=== PATIENT | male | born 1965 | race Caucasian/White ===

== ENCOUNTER 2020-03-19 15:53 | Outpatient (CLI) | payer BC, SELFPAY ==
[2020-03-19 16:18] LABS: Basophils Percent Auto 0.6 % (0.2-1.2); Eosinophils Absolute Auto 0.1 K/mm3 (0-0.3); Eosinophils Percent Auto 1.3 % (0-4.4); Hematocrit 44.7 % (42.0-52.0); Hemoglobin 15.1 g/dL (14.0-18.0); Immature Granulocyte Absolute 0.02 K/mm3 (0.00-0.031); Immature Granulocyte Percent A 0.3 % (0-0.5); Lymphocytes Absolute Auto 1.28 K/mm3 (0.9-3.2); Mean Corpuscular HGB Conc 33.8 g/dl (32-36); Mean Corpuscular Hemoglobin 30.5 pg (26-34); Mean Corpuscular Volume 90.3 fl (80-100); Mean Platelet Volume 10.5 fl (7.4-10.4); Monocytes Absolute Auto 0.8 K/mm3 (0.1-0.6); Monocytes Percent Auto 11.1 % (2.6-8.5); Neutrophils Absolute Auto 4.6 K/mm3 (1.3-6.7); Neutrophils Percent Auto 67.7 % (45.5-73.1); Platelet Count Result 246 k/mm3 (150-375); Red Blood Count 4.95 M/mm3 (4.6-6.20); Red Cell Distribution Width 12.2 % (11.5-14.5); White Blood Count 6.7 K/mm3 (4.5-10.0)
[2020-03-19 16:30] LABS: Alanine Aminotransferase 35 U/L (4-50); Albumin Level 4.6 g/dL (3.5-5.1); Alkaline Phosphatase 84 U/L (38-126); Anion Gap 13.9 mmol/L (7-16); Aspartate Amino Transferase 24 U/L (17-59); Bilirubin,Total 0.6 mg/dL (0.2-1.3); Blood Urea Nitrogen 17 mg/dL (9-20); Calcium 9.3 mg/dL (8.4-10.2); Carbon Dioxide 30 mmol/L (22-30); Chloride 98 mmol/L (98-107); Cholesterol 176 mg/dL (0-200); Estimated Glomerular Filt Rate > 60; Glucose 132 mg/dL (75-110); HDL Direct 42 mg/dL; Potassium 3.9 mmol/L (3.4-5.0); Sodium 138 mmol/L (137-145); Triglycerides 104 mg/dL (<150)
[2020-03-19 16:41] LABS: LDL Cholesterol Direct 112 mg/dL
[2020-03-19 17:01] LABS: Prostate Specific Antigen 1.4 ng/mL (< OR = 4.0)
== END 2020-03-19 15:54 | disposition home or self-care (01) ==
LOC: ANHLAB 15:56
PROVIDERS: PCP Internal Medicine; Visit Provider Clinical Nurse Specialist
DX: Z12.5 Encounter for screening for malignant neoplasm of prostate (principal); I10 Essential (primary) hypertension; E78.5 Hyperlipidemia, unspecified; E11.9 Type 2 diabetes mellitus without complications
CPT/HCPCS: 36415; 80053; 80061; 83036; 84153; 85025; G0103

== ENCOUNTER 2020-12-25 15:34 | Outpatient (CLI) | payer BC, SELFPAY ==
[2020-12-25 16:11] LABS: Anion Gap 6 mmol/L (8-16); Blood Urea Nitrogen 23 mg/dL (9-20); Calcium 9.4 mg/dL (8.4-10.2); Carbon Dioxide 33 mmol/L (22-30); Chloride 97 mmol/L (98-107); Estimated Glomerular Filt Rate > 60; Glucose 133 mg/dL (75-110); Potassium 3.9 mmol/L (3.4-5.0); Sodium 136 mmol/L (137-145)
[2020-12-25 17:01] LABS: Hemoglobin A1C 7.9 % (<5.7)
[2020-12-25 17:07] LABS: Creatinine Urine 136.7 mg/dL
[2020-12-25 17:12] LABS: MALB Creatinine Ratio 113.8 mg/g (0-30); Microalbumin Urine Random 155.6 mg/L (0-16.7)
== END 2020-12-25 15:35 | disposition home or self-care (01) ==
PROVIDERS: PCP Internal Medicine; Visit Provider Nurse Practitioner
DX: E11.9 Type 2 diabetes mellitus without complications (principal)
CPT/HCPCS: 36415; 80048; 82043; 83036

== ENCOUNTER 2022-03-17 16:02 | Outpatient (CLI) | payer BC, SELFPAY ==
[2022-03-17 17:37] LABS: Basophils Percent Auto 0.5 % (0.2-1.2); Eosinophils Absolute Auto 0.1 K/mm3 (0-0.3); Eosinophils Percent Auto 1.4 % (0-4.4); Hematocrit 41.7 % (42.0-52.0); Immature Granulocyte Absolute 0.04 K/mm3 (0.00-0.031); Immature Granulocyte Percent A 0.6 % (0-0.5); Lymphocytes Absolute Auto 1.58 K/mm3 (0.9-3.2); Lymphocytes Percent Auto 24.3 % (18.3-44.2); Mean Corpuscular HGB Conc 33.6 g/dl (32-36); Mean Corpuscular Hemoglobin 30.8 pg (26-34); Mean Corpuscular Volume 91.6 fl (80-100); Monocytes Absolute Auto 0.7 K/mm3 (0.1-0.6); Monocytes Percent Auto 10.8 % (2.6-8.5); Neutrophils Absolute Auto 4.1 K/mm3 (1.3-6.7); Neutrophils Percent Auto 62.4 % (45.5-73.1); Platelet Count Result 280 k/mm3 (150-375); Red Blood Count 4.55 M/mm3 (4.6-6.20); White Blood Count 6.5 K/mm3 (4.5-10.0)
[2022-03-17 17:49] LABS: Alanine Aminotransferase 18 U/L (6-50); Albumin Level 4.4 g/dL (3.5-5.1); Alkaline Phosphatase 102 U/L (38-126); Anion Gap 11 mmol/L (8-16); Aspartate Amino Transferase 17 U/L (17-59); Bilirubin,Total 0.6 mg/dL (0.2-1.3); Blood Urea Nitrogen 13 mg/dL (9-20); Calcium 9.2 mg/dL (8.4-10.2); Carbon Dioxide 30 mmol/L (22-30); Chloride 96 mmol/L (98-107); Cholesterol 151 mg/dL (0-200); Estimated Glomerular Filt Rate > 60; Glucose 200 mg/dL (65-110); HDL Direct 33 mg/dL; Potassium 3.8 mmol/L (3.4-5.0); Sodium 137 mmol/L (137-145); Triglycerides 77 mg/dL (<150)
[2022-03-17 17:59] LABS: LDL Cholesterol Direct 96 mg/dL
[2022-03-17 18:18] LABS: Prostate Specific Antigen 1.5 ng/mL (< OR = 4.0)
[2022-03-18 00:13] LABS: Hemoglobin A1C 10.5 % (<5.7)
== END 2022-03-17 16:03 | disposition home or self-care (01) ==
PROVIDERS: PCP Internal Medicine; Visit Provider Clinical Nurse Specialist
DX: Z12.5 Encounter for screening for malignant neoplasm of prostate (principal); F41.9 Anxiety disorder, unspecified; E78.2 Mixed hyperlipidemia; E11.9 Type 2 diabetes mellitus without complications
CPT/HCPCS: 36415; 80053; 80061; 83036; 84153; 84443; 85025; G0103

== ENCOUNTER 2022-06-01 06:24 | Outpatient (RCR) | payer BC, SELFPAY | END 2022-08-17 08:29 | disposition home or self-care (01) | LOC: ANHDMC 06:24 | PROVIDERS: PCP Internal Medicine; Visit Provider Clinical Nurse Specialist | DX: E11.9 Type 2 diabetes mellitus without complications (principal) | CPT/HCPCS: 99199 ==

== ENCOUNTER 2022-06-19 16:17 | Emergency (ER) | payer BC, SELFPAY ==
--- NOTE | ~2022-06-19 | XR_ITS ---
EXAM: XR tibia fibula RT 2V DATE: 06/19/2022 16:52 HISTORY: LATERACTERION TO LAT SIDE OF MID TIBFIB. HIT WITH TIRE IRON . COMPARISON: None available. FINDINGS: Normal mineralization. No fracture or dislocation. No lytic or blastic lesion. Joint space s are maintained. No erosion. Smooth periosteal elevation along the lateral cortex of the mid tibia, apparently deep to the soft tissue wound. IMPRESSION: No definite acute osseous finding. Smooth periosteal elevation deep to the soft tissue wo und, presumably an incidental and unrelated finding. Reviewed, dictated and finalized at location K. IMPRESSION: No definite acute osseous finding. Smooth periosteal elevation deep to the soft tissue wound, presumably an incidental and unrelated finding.
[2022-06-19 16:29] VITALS: BP 179/84; PULSE 90; RESP 19; TEMP 36.9; O2SAT 97
--- NOTE | 2022-06-19 17:14 | ED.WOUNDLAC ---
HPI - Wound/Laceration General Chief Complaint: Wound/Laceration <BIANKA Green Last Filed: 06/19/22 18:15> Stated Complaint: R FRANCISCO LACERATION <BIANKA Green Last Filed: 06/19/22 18:15> Time Seen by Provider: 06/19/22 16:58 <BIANKA Green Last Filed: 06/19/22 18:15> Source: patient <BIANKA Green Last Filed: 06/19/22 18:15> Mode of arrival: ambulatory <BIANKA Green Last Filed: 06/19/22 18:15> Limitations: no limitations <BIANKA Green Last Filed: 06/19/22 18:15> History of Present Illness HPI narrative: Patient is a 56 y/o male who presents to the ED with c/o laceration to his R francisco. Patient reports he was changing a car tire today when the tire excellently slipped and hit him in his right lower lateral francisco. He sustained a large laceration. No other injuries. He has been able to ambulate since the fall. No numbness, tingling. Tetanus status up-to-date. <BIANKA Green Last Filed: 06/19/22 18:15> Related Data Home Medications: Home Medications Medication Instructions Recorded Confirmed lancets 33 gauge (OneAidan Yeager #100 ea 03/30/22 03/30/22 Plus Lancet) <BIANKA Green Last Filed: 06/19/22 18:15> Allergies/Adverse Reactions: Allergies Allergy/AdvReac Type Severity Reaction Status Date / Time No Known Allergies Allergy Verified 03/30/22 13:28 <BIANKA Green Last Filed: 06/19/22 18:15> Review of Systems Review of Systems: CONSTITUTIONAL: Denies fever, chills, or sweats. SKIN: Reports laceration to R lateral lower francisco. NEUROLOGIC: Denies tingling, numbness, or weakness. <Rand Schwartz PA-C - Last Filed: 06/19/22 18:15> All systems reviewed & are unremarkable except as noted in HPI and below <Rand Schwartz PA-C - Last Filed: 06/19/22 18:15> [facility] Past Medical History Medical History: Medical History Alcoholism sober since 2007 Allergies Anxiety GI bleed HTN (hypertension) Hyperglycemia Hyperlipidemia Median nerve compression Type 2 diabetes mellitus <Rand Schwartz PA-C - Last Filed: 06/19/22 18:15> Surgical History Surgical History: Surgical History History of carpal tunnel surgery of left wrist History of carpal tunnel surgery of right wrist History of hand surgery right finger <Rand Schwartz PA-C - Last Filed: 06/19/22 18:15> Family History Family History: Family History Mother Carcinoma of colon Father No problems noted. <Rand Schwartz PA-C - Last Filed: 06/19/22 18:15> Social History Social History: Social History Smoking status: Never smoker Smokeless tobacco user: chewing tobacco Alcohol intake: former <Rand Schwartz PA-C - Last Filed: 06/19/22 18:15> Exam Narrative: GENERAL: Well appearing, morbidly obese, non-toxic, in no acute distress. HEAD: Normocephalic, atraumatic. NECK: Supple. No adenopathy, no masses. RESPIRATORY: Airway patent, respirations nonlabored. CARDIOVASCULAR: Regular rate and rhythm without murmurs, rubs, or gallops. Pedal pulses 2+ and equal bilaterally. MUSCULOSKELETAL: Moves all extremities. Strength/ROM intact without gross deformities. Sensation intact. Approx 6.5 cm laceration, slightly gaping, to right lateral anterior lower leg. Subcutaneous fat exposed, no obvious muscle or tendon involvement. SKIN: Warm, dry, normal color. No rashes. NEURO: A&O X3. Speech clear. Cranial nerves II-XII grossly intact. Steady gait. No ataxic movements. PSYCHIATRIC: Appropriate mood and affect. Normal interaction. <Rand Blake
== END 2022-06-19 18:21 | disposition home or self-care (01) ==
PROVIDERS: Emergency Provider Emergency Medicine; PCP Internal Medicine
DX: S81.811A Laceration without foreign body, right lower leg, initial encounter (principal); I10 Essential (primary) hypertension; E78.5 Hyperlipidemia, unspecified; E11.9 Type 2 diabetes mellitus without complications; W22.8XXA Striking against or struck by other objects, initial encounter
CPT/HCPCS: 12002; 73590; 99283

== ENCOUNTER 2022-09-16 10:07 | Emergency (ER) | payer BC, SELFPAY ==
--- NOTE | 2022-09-16 10:14 | ED.BACK ---
HPI - Back Pain/Injury General Chief Complaint: Back Pain/Injury Stated Complaint: BACK PAIN Time Seen by Provider: 09/16/22 10:08 Source: patient and RN notes reviewed History of Present Illness HPI Narrative: Patient is a 56-year-old male who presents to urgent care with complaints of low back pain. Patient states he was running around the [place] on Tuesday tracing after several dogs and tweaked his back. Patient states that he has had low back pain in the past and believes he has ?bulging disc?. Patient has been using icy Hot taking ibuprofen. Denies any radiation of the pain. No other acute complaints. No acute distress noted. Patient aware of the plan of care. Some parts of this dictation were generated by voice recognition software and may contain typographical and/or grammatical inaccuracies. Related Data Home Medications Medication Instructions Recorded Confirmed lancets 33 gauge ([email or web address] Delica #100 ea 03/30/22 03/30/22 Plus Lancet) Allergies Allergy/AdvReac Type Severity Reaction Status Date / Time No Known Allergies Allergy Verified 03/30/22 13:28 Review of Systems Review of Systems: CONSTITUTIONAL: Denies fever, chills, or sweats. EYES: Denies visual changes, redness, or discharge. ENT: Denies rhinorrhea, congestion, sore throat, or otalgia. CARDIOVASCULAR: Denies chest pain, palpitations, or edema. RESPIRATORY: Denies cough or dyspnea. GASTROINTESTINAL: Denies abdominal pain, nausea, vomiting, or diarrhea. GENITOURINARY: Denies dysuria or hematuria. SKIN: Denies rash or itching. MUSCULOSKELETAL: Reports of low back pain NEUROLOGIC: Denies headache, numbness, or weakness. All other systems reviewed are negative, except as documented in HPI. [facility] Past Medical History Medical History Alcoholism sober since 2007 Allergies Anxiety GI bleed HTN (hypertension) Hyperglycemia Hyperlipidemia Median nerve compression Type 2 diabetes mellitus Surgical History Surgical History History of carpal tunnel surgery of left wrist History of carpal tunnel surgery of right wrist History of hand surgery right finger Family History Family History Mother Carcinoma of colon Father No problems noted. Social History Social History Smoking status: Never smoker Smokeless tobacco user: chewing tobacco Alcohol intake: former Comments At the time of my signature, I reviewed and agree with the nursing past medical, surgical, social, and family history. There is no relevant family history pertinent to the patient complaint. Exam Narrative: GENERAL: This is a well-nourished, well-developed patient, in no apparent distress. HEAD: normocephalic, atraumatic. EYES: PERRL. Sclera clear/white. Vision is grossly intact. EARS: External ears normal NOSE: External nose normal with no obvious nasal discharge, nares without redness, no rhinorrhea. THROAT: Mucous membranes moist NECK: Neck supple SKIN: warm, intact with no suspicious lesions or rash, good texture and turgor. NEURO: awake, alert, and oriented to person, place and time. There were no obvious focal neurologic abnormalities. EXTREMITIES: No clubbing, cyanosis, or edema. BACK: Diffuse lumbar tenderness exacerbated with movement, twisting bending at the waist. Pinpoint moderate tenderness to the left number aspect. Positive bilateral SLE. Course Course Level of Care: Express Care Visit Vital Signs Vital signs: Vital Signs Temperature 96.7 F L 09/16/22 10:19 Pulse Rate 95 09/16/22 10:19 Respiratory Rate 16 09/16/22 10:19 Blood Pressure 148/106 H 09/16/22 10:19 Pulse Oximetry 99 09/16/22 10:19 Temperature 96.7 F L 09/16/22 10:19 Pulse Rate 95 09/16/22 10
[2022-09-16 10:19] VITALS: BP 148/106; PULSE 95; RESP 16; TEMP 35.9; O2SAT 99
== END 2022-09-16 10:48 | disposition home or self-care (01) ==
PROVIDERS: Emergency Provider Nurse Practitioner Family; PCP Internal Medicine
DX: S39.012A Strain of muscle, fascia and tendon of lower back, initial encounter (principal); X50.9XXA Other and unspecified overexertion or strenuous movements or postures, initial encounter; Y93.02 Activity, running; I10 Essential (primary) hypertension; E78.5 Hyperlipidemia, unspecified; E11.9 Type 2 diabetes mellitus without complications
CPT/HCPCS: 99213; G0463

== ENCOUNTER 2023-01-20 15:29 | Outpatient (CLI) | payer BC, SELFPAY ==
[2023-01-20 18:44] LABS: Anion Gap 9 mmol/L (8-16); Blood Urea Nitrogen 20 mg/dL (9-20); Calcium 9.1 mg/dL (8.4-10.2); Carbon Dioxide 30 mmol/L (22-30); Chloride 97 mmol/L (98-107); Estimated Glomerular Filt Rate > 60; Glucose 226 mg/dL (65-110); Potassium 4.1 mmol/L (3.4-5.0); Sodium 136 mmol/L (137-145)
[2023-01-20 19:22] LABS: Hemoglobin A1C 9.2 % (<5.7)
[2023-01-21 11:35] LABS: Creatinine Urine 180.7 mg/dL
[2023-01-21 11:39] LABS: MALB Creatinine Ratio 82.5 mg/g (0-30)
== END 2023-01-20 15:30 | disposition home or self-care (01) ==
LOC: ANHGOSHLAB 15:29
PROVIDERS: PCP Internal Medicine; Visit Provider Clinical Nurse Specialist
DX: E11.9 Type 2 diabetes mellitus without complications (principal)
CPT/HCPCS: 36415; 80048; 82043; 82607; 83036

== ENCOUNTER 2024-02-29 15:44 | Outpatient (CLI) | payer BC, SELFPAY ==
[2024-02-29 20:08] LABS: Basophils Percent Auto 0.5 % (0.2-1.2); Eosinophils Absolute Auto 0.1 K/mm3 (0-0.3); Eosinophils Percent Auto 1.6 % (0-4.4); Hematocrit 45.3 % (42.0-52.0); Immature Granulocyte Absolute 0.06 K/mm3 (0.00-0.031); Immature Granulocyte Percent A 0.8 % (0-0.5); Lymphocytes Absolute Auto 1.36 K/mm3 (0.9-3.2); Lymphocytes Percent Auto 17.8 % (18.3-44.2); Mean Corpuscular HGB Conc 33.1 g/dl (32-36); Mean Corpuscular Hemoglobin 30.7 pg (26-34); Mean Corpuscular Volume 92.8 fl (80-100); Mean Platelet Volume 11.4 fl (7.4-10.4); Monocytes Absolute Auto 0.8 K/mm3 (0.1-0.6); Monocytes Percent Auto 10.4 % (2.6-8.5); Neutrophils Absolute Auto 5.3 K/mm3 (1.3-6.7); Neutrophils Percent Auto 68.9 % (45.5-73.1); Platelet Count Result 280 k/mm3 (150-375); Red Blood Count 4.88 M/mm3 (4.6-6.20); Red Cell Distribution Width 11.6 % (11.5-14.5); White Blood Count 7.6 K/mm3 (4.5-10.0)
[2024-02-29 20:24] LABS: Alanine Aminotransferase 32 U/L (6-50); Albumin Level 4.7 g/dL (3.5-5.1); Alkaline Phosphatase 83 U/L (38-126); Anion Gap 12 mmol/L (4-12); Aspartate Amino Transferase 27 U/L (17-59); Bilirubin,Total 0.5 mg/dL (0.2-1.3); Blood Urea Nitrogen 16 mg/dL (9-20); Calcium 9.3 mg/dL (8.4-10.2); Carbon Dioxide 30 mmol/L (22-30); Chloride 95 mmol/L (98-107); Cholesterol 222 mg/dL (0-200); Estimated Glomerular Filt Rate > 60; Glucose 171 mg/dL (65-110); HDL Direct 45 mg/dL; Potassium 4.2 mmol/L (3.4-5.0); Sodium 137 mmol/L (137-145); Triglycerides 199 mg/dL (<150)
[2024-02-29 20:25] LABS: Creatinine Urine 87.2 mg/dL
[2024-02-29 20:36] LABS: LDL Cholesterol Direct 148 mg/dL
[2024-02-29 20:44] LABS: MALB Creatinine Ratio 405.4 mg/g (0-30); Microalbumin Urine Random 353.5 mg/L (0-16.7)
[2024-02-29 20:53] LABS: Prostate Specific Antigen 2.1 ng/mL (< OR = 4.0)
[2024-02-29 21:24] LABS: Hemoglobin A1C 8.8 % (<5.7)
== END 2024-02-29 15:45 | disposition home or self-care (01) ==
LOC: ANHGOSHLAB 15:46
PROVIDERS: PCP Clinical Nurse Specialist; Visit Provider Clinical Nurse Specialist
DX: E55.9 Vitamin D deficiency, unspecified (principal); E11.9 Type 2 diabetes mellitus without complications; E78.2 Mixed hyperlipidemia; I10 Essential (primary) hypertension; Z12.5 Encounter for screening for malignant neoplasm of prostate
CPT/HCPCS: 36415; 80053; 80061; 82043; 82607; 83036; 84153; 85025; G0103

== ENCOUNTER 2024-07-24 13:24 | Emergency (ER) | payer BC, SELFPAY ==
--- NOTE | ~2024-07-24 | CT_ITS ---
EXAMINATION: CT brain wo con DATE: 07/24/2024 14:40 INDICATION: Headache. Hypertension. TECHNIQUE: Computed tomography (CT) of the head was performed without intravenous contrast. Sagittal and coronal reconstructions were performed. The mA was adjusted according to patient size. Iterative reconstruction technique was employed. The dose-length product was 605.33 mGy-cm. COMPARISON: head CT dated 07/30/2010 FINDINGS: No acute intracranial hemorrhage, acute infarction or abnormal extra axial fluid collection. Small ol d infarct in the left cerebellar hemisphere. Ventricles are normal and symmetric. No mass/mass effect . Small right mastoid effusion. The orbits are normal. Partially visualized cephalad margin of a like ly mucous retention cyst at the inferior right maxillary sinus. IMPRESSION: 1. Small old left cerebellar infarct. No acute intracranial process. Reviewed, dictated and finalized at location A. [employer]
[2024-07-24 13:29] VITALS: BP 192/103; PULSE 90; RESP 20; TEMP 36.3; O2SAT 98
--- NOTE | 2024-07-24 14:27 | ED.EAR ---
HPI - Ear Problem General Chief complaint: Ear <Rashida Krishnamurthy PA-C - Last Filed: 07/25/24 12:14> Stated complaint: R ear problems <Rashida Krishnamurthy PA-C - Last Filed: 07/25/24 12:14> Time Seen by Provider: 07/24/24 14:27 <Rashida Krishnamurthy PA-C - Last Filed: 07/25/24 12:14> Focused HPI: This is a 58 year old male that presents to the ER for ear problems. Reports he has a ruptured ear drum on the right. Reports he has had some discomfort and fullness. Reports today his jaw stared hurting and he has had headaches. Reports dizziness today as well. Described as lightheadedness. Denies chest pain or shortness of breath. His blood pressure is noted to be elevated in triage. Reports he did take his blood pressure medication last night, but has not been taking it as prescribed recently. GENERAL: Well-appearing, well-nourished, and in no acute distress. HEAD: Normocephalic, atraumatic. CHEST: Clear to auscultation. ?No respiratory distress. HEART: Regular rate and rhythm.? NEURO: ?Alert and oriented x3. Patient screened in triage and initial orders placed.? ?Additional care and disposition to be based upon?diagnostic testing and treatment. <Rashida Krishnamurthy PA-C - Last Filed: 07/25/24 12:14> History of Present Illness HPI Narrative: see above <Xuan Mcmullen MD - Last Filed: 07/24/24 18:05> Related Data Home medications: Home Medications ?Medication ?Instructions ?Recorded ?Confirmed ?Last Taken ?Type lancets 33 gauge (OneTouch Delica #100 ea 03/30/22 03/01/24 Unknown History Plus Lancet) <Rashida Krishnamurthy PA-C - Last Filed: 07/25/24 12:14> Allergies/adverse reactions: Allergies Allergy/AdvReac Type Severity Reaction Status Date / Time No Known Allergies Allergy Verified 07/24/24 13:33 <BIANKA Nuñez Last Filed: 07/25/24 12:14> Review of Systems Review of Systems: All systems reviewed & are unremarkable except as noted in HPI and below <Rashida Krishnamurthy PA-C - Last Filed: 07/25/24 12:14> [facility] Past Medical History Medical History: Medical History Alcoholism sober since 2007 Allergies Anxiety GI bleed HTN (hypertension) Hyperglycemia Hyperlipidemia Median nerve compression Type 2 diabetes mellitus <Rashida Krishnamurthy PA-C - Last Filed: 07/25/24 12:14> Surgical History Surgical History: Surgical History History of carpal tunnel surgery of left wrist History of carpal tunnel surgery of right wrist History of hand surgery right finger <Rashida Krishnamurthy PA-C - Last Filed: 07/25/24 12:14> Family History Family History: Family History Mother Carcinoma of colon Father No problems noted. <Rashida Krishnamurthy PA-C - Last Filed: 07/25/24 12:14> Social History Social History: Social History (Updated 01/20/23 @ 14:57 by Olga Ramirez MA) Smoking status: Never smoker Smokeless tobacco user: chewing tobacco Alcohol intake: former Lack of Transportation: No Lack of Food: Never True Current Housing: I Have Housing Concerned About Future Housing: No Difficulty Paying Gas/Electric Bills: No Difficulty Paying for Meds: No Currently Unemployed: No Education: Bachelor's Degree Difficulty w/ Childcare or Family Care: No <Rashida Krishnamurthy PA-C - Last Filed: 07/25/24 12:14> Exam Narrative: EXAMINATION OF ORGAN SYSTEMS/BODY AREAS: Constitutional: Vital signs per nursing GENERAL:[No acute distress, non-toxic appearing.] HEAD: Normal with no signs of head trauma. EYES: EOMI, conjunctiva normal ENT: R TM ruptured; no redness to canal or drainage or tenderness LUNGS: Nonlabored breathing. HEART: [Regular rate and rhythm] ABD: [Soft], [nontender to palpation] EXT: Normal range of motion SKIN: [No rashes or lesions.] NEURO: [Alert and oriented x 3. No gross focal sensory or strength deficits.] ambulating with normal, steady gait. Clear speech. PSYCH: Normal affect <Xuan Mcmullen MD - Last Filed: 07/24/24 18:05> Course Vital Signs Vital signs: Vital Signs Temperature 97.3 F L 07/24/24 13:29 Pulse Rate 90 07/24/24 13:29 Respiratory Rate 20 07/24/24 13:29 Blood Pressure 192/103 H 07/24/24 13:29 Pulse Oximetry 98 07/24/24 13:29 Oxygen Delivery Room Air 07/24/24 13:29 Temperature 97.3 F L 07/24/24 13:29 Pulse Rate 90 07/24/24 13:29 Respiratory Rate 20 07/24/24 13:29 Blood Pressure 192/103 H 07/24/24 13:29 Pulse Oximetry 98 07/24/24 13:29 Oxygen Delivery Room Air 07/24/24 13:29 <Rashida Krishnamurthy PA-C - Last Filed: 07/25/24 12:14> Vital Signs Temperature 97.3 F L 07/24/24 13:29 Pulse Rate 90 07/24/24 13:29 Respiratory Rate 20 07/24/24 13:29 Blood Pressure 192/103 H 07/24/24 13:29 Pulse Oximetry 98 07/24/24 13:29 Oxygen Delivery Room Air 07/24/24 13:29 Temperature 97.3 F L 07/24/24 13:29 Pulse Rate 90 07/24/24 13:29 Respiratory Rate 20 07/24/24 13:29 Blood Pressure 192/103 H 07/24/24 13:29 Pulse Oximetry 98 07/24/24 13:29 Oxygen Delivery Room Air 07/24/24 13:29 <Xuan Mcmullen MD - Last Filed: 07/24/24 18:05> Medical Decision Making MDM Narrative Medical decision making narrative: patient presenting with some right ear fullness, and also had some lightheadedness recently, no vertigo, fevers, or ear drainage. Patient also with asymptomatic hypertension. No signs or symptoms of end organ dysfunction; no chest pain or shortness of breath, neurological deficits, severe headaches, visual disturbance, oliguria, or symptoms of dissection/AAA). Long-term risks of hypertension, especially uncontrolled, were discussed including increased risks of kidney disease, vascular disease, stroke and heart disease. We discussed lifestyle modifications including diet and exercise. Labs are within acceptable limits, CT head does show possible old cerebellar infarct, I have discussed all of this with the patient, including the need for him to make sure that he is keeping his diabetes and hypertension under control, quitting alcohol and tobacco use to help limit his risk factors. Importance of making sure he actually takes his blood pressure medications as scheduled discussed; He admits that he does not take his medications consistently. I have low concern for CVA today without any neurologic deficits, vertigo. ED my independent interpretation shows normal sinus rhythm rate 84, NE 166, QRS 95, QTC 413, no ST elevation or depression concerning for acute ischemia or arrhythmia. Patient expressed understanding of the instructions and strongly advised to follow-up with PMD for further management. <Xuan Mcmullen MD - Last Filed: 07/24/24 18:05> Vital Signs Vital Signs: Vital Signs Temperature 97.3 F L 07/24/24 13:29 Pulse Rate 90 07/24/24 13:29 Respiratory Rate 20 07/24/24 13:29 Blood Pressure 192/103 H 07/24/24 13:29 Pulse Oximetry 98 07/24/24 13:29 Oxygen Delivery Room Air 07/24/24 13:29 Temperature 97.3 F L 07/24/24 13:29 Pulse Rate 90 07/24/24 13:29 Respiratory Rate 20 07/24/24 13:29 Blood Pressure 192/103 H 07/24/24 13:29 Pulse Oximetry 98 07/24/24 13:29 Oxygen Delivery Room Air 07/24/24 13:29 <Rashdia Krishnamurthy PA-C - Last Filed: 07/25/24 12:14> Vital Signs Temperature 97.3 F L 07/24/24 13:29 Pulse Rate 90 07/24/24 13:29 Respiratory Rate 20 07/24/24 13:29 Blood Pressure 192/103 H 07/24/24 13:29 Pulse Oximetry 98 07/24/24 13:29 Oxygen Delivery Room Air 07/24/24 13:29 Temperature 97.3 F L 07/24/24 13:29 Pulse Rate 90 07/24/24 13:29 Respiratory Rate 20 07/24/24 13:29 Blood Pressure 192/103 H 07/24/24 13:29 Pulse Oximetry 98 07/24/24 13:29 Oxygen Delivery Room Air 07/24/24 13:29 <Xuan Mcmullen MD - Last Filed: 07/24/24 18:05> Lab Data Result diagrams: 07/24/24 14:46 07/24/24 14:46 <Rashida Krishnamurthy PA-C - Last Filed: 07/25/24 12:14> Labs: Lab Results 07/24/24 Range/Units 14:46 WBC 9.1 (4.5-10.0) K/mm3 RBC 5.00 (4.6-6.20) M/mm3 Hgb 15.8 (14.0-18.0) g/dL Hct 45.5 (42.0-52.0) % MCV 91.0 (80-100) fl MCH 31.6 (26-34) pg MCHC 34.7 (32-36) g/dl RDW 11.7 (11.5-14.5) % Plt Count 251 (150-375) k/mm3 MPV 10.4 (7.4-10.4) fl Immature Gran % (Auto) 0.4 (0-0.5) % Neut % (Auto) 79.7 H (45.5-73.1) % Lymph % (Auto) 10.4 L (18.3-44.2) % Gillespie % (Auto) 8.6 H (2.6-8.5) % Eos % (Auto) 0.5 (0-4.4) % Baso % (Auto) 0.4 (0.2-1.2) % Lymph # (Auto) 0.95 (0.9-3.2) K/mm3 Gillespie # (Auto) 0.8 H (0.1-0.6) K/mm3 Eos # (Auto) 0.1 (0-0.3) K/mm3 Baso # (Auto) 0.0 (0.0-0.1) K/mm3 Abs Immat Gran (auto) 0.04 H (0.00-0.031) K/mm3 Absolute Neuts (auto) 7.3 H (1.3-6.7) K/mm3 Absolute Nucleated RBC 0.000 (0.0-0.012) K/mm3 Nucleated RBC % 0.0 (0.0-0.2) % Sodium 137 (137-145) mmol/L Potassium 4.6 (3.4-5.0) mmol/L Chloride 102 (98-107) mmol/L Carbon Dioxide 28 (22-30) mmol/L Anion Gap 7 (4-12) mmol/L BUN 13 (9-20) mg/dL Creatinine 0.90 (0.7-1.3) mg/dL Estim Creat Clear Calc 96 ml/min Estimated GFR > 60 (59 - ) Glucose 180 H (65-110) mg/dL Calcium 9.7 (8.4-10.2) mg/dL Total Bilirubin 0.6 (0.2-1.3) mg/dL AST 20 (17-59) U/L ALT 25 (6-50) U/L Alkaline Phosphatase 77 (38-126) U/L Total Protein 7.0 (6.3-8.2) g/dL Albumin 4.7 (3.5-5.1) g/dL <Rashida Krishnamurthy PA-C - Last Filed: 07/25/24 12:14> Lab Results 07/24/24 Range/Units 14:46 WBC 9.1 (4.5-10.0) K/mm3 RBC 5.00 (4.6-6.20) M/mm3 Hgb 15.8 (14.0-18.0) g/dL Hct 45.5 (42.0-52.0) % MCV 91.0 (80-100) fl MCH 31.6 (26-34) pg MCHC 34.7 (32-36) g/dl RDW 11.7 (11.5-14.5) % Plt Count 251 (150-375) k/mm3 MPV 10.4 (7.4-10.4) fl Immature Gran % (Auto) 0.4 (0-0.5) % Neut % (Auto) 79.7 H (45.5-73.1) % Lymph % (Auto) 10.4 L (18.3-44.2) % Gillespie % (Auto) 8.6 H (2.6-8.5) % Eos % (Auto) 0.5 (0-4.4) % Baso % (Auto) 0.4 (0.2-1.2) % Lymph # (Auto) 0.95 (0.9-3.2) K/mm3 Gillespie # (Auto) 0.8 H (0.1-0.6) K/mm3 Eos # (Auto) 0.1 (0-0.3) K/mm3 Baso # (Auto) 0.0 (0.0-0.1) K/mm3 Abs Immat Gran (auto) 0.04 H (0.00-0.031) K/mm3 Absolute Neuts (auto) 7.3 H (1.3-6.7) K/mm3 Absolute Nucleated RBC 0.000 (0.0-0.012) K/mm3 Nucleated RBC % 0.0 (0.0-0.2) % Sodium 137 (137-145) mmol/L Potassium 4.6 (3.4-5.0) mmol/L Chloride 102 (98-107) mmol/L Carbon Dioxide 28 (22-30) mmol/L Anion Gap 7 (4-12) mmol/L BUN 13 (9-20) mg/dL Creatinine 0.90 (0.7-1.3) mg/dL Estim Creat Clear Calc 96 ml/min Estimated GFR > 60 (59 - ) Glucose 180 H (65-110) mg/dL Calcium 9.7 (8.4-10.2) mg/dL Total Bilirubin 0.6 (0.2-1.3) mg/dL AST 20 (17-59) U/L ALT 25 (6-50) U/L Alkaline Phosphatase 77 (38-126) U/L Total Protein 7.0 (6.3-8.2) g/dL Albumin 4.7 (3.5-5.1) g/dL <Xuan Mcmullen MD - Last Filed: 07/24/24 18:05> Imaging Data Radiologist's impression: ITS Impressions Head CT 07/24/24 14:46 IMPRESSION: 1. Small old left cerebellar infarct. No acute intracranial process. <Rashida Krishnamurthy PA-C - Last Filed: 07/25/24 12:14> Critical Care Time Critical Care Time Critical Care Time: No <Rashida Krishnamurthy PA-C - Last Filed: 07/25/24 12:14> Discharge Plan Discharge Clinical Impression: Chronic hypertension, Dizziness, Congestion of right ear <Rashida Krishnamurthy PA-C - Last Filed: 07/25/24 12:14> Patient Disposition: Home, Self-Care <Rashida Krishnamurthy PA-C - Last Filed: 07/25/24 12:14> Condition: Stable <Rashida Krishnamurthy PA-C - Last Filed: 07/25/24 12:14> Instructions: Ruptured Eardrum (ED), Chronic Hypertension (ED) <Rashida Krishnamurthy PA-C - Last Filed: 07/25/24 12:14> Additional Instructions: Please make sure to take your medications as prescribed and follow up with your PCP and with ENT. You can always return to the ER for any further issues, especially if you experience any new numbness/weakness, difficulty with speech or walking, dizziness, or anything else concerning. <Rashida Krishnamurthy PA-C - Last Filed: 07/25/24 12:14> Patient Language: Botswanan <Rashida Krishnamurthy PA-C - Last Filed: 07/25/24 12:14> Prescriptions: No Action cyclobenzaprine 10 mg tablet 10 mg PO TID Qty: 20 0RF ibuprofen 800 mg tablet 800 mg PO TID PRN (Reason: pain) Qty: 30 0RF (DME) lancets [OneTouch Delica Plus Lancet] 33 gauge misc See Rx Instructions .ROUTE .MEDSUPPLY Qty: 100 Rx Instructions: As directed losartan 100 mg tablet See Rx Instructions .ROUTE .COMPLEX Qty: 90 1RF Dose Instruction: TAKE 1 TABLET BY MOUTH DAILY Rx Instructions: TAKE 1 TABLET BY MOUTH DAILY amlodipine 5 mg tablet See Rx Instructions .ROUTE .COMPLEX Qty: 90 0RF Dose Instruction: TAKE 1 TABLET BY MOUTH DAILY Rx Instructions: TAKE 1 TABLET BY MOUTH DAILY Jardiance 10 mg tablet 10 mg PO DAILY Qty: 90 0RF (DME) blood-glucose meter Misc See Rx Instructions .Route Qty: 1 0RF Rx Instructions: Please check glucose three times per day (DME) Blood Glucose Test Strip See Rx Instructions .Route Qty: 50 1RF Rx Instructions: Please check glucose three times per day (DME) lancets 30 gauge misc See Rx Instructions .Route Qty: 100 1RF Rx Instructions: Please check your blood sugar three times per day atorvastatin 20 mg tablet 20 mg PO DAILY Qty: 90 1RF sertraline 100 mg tablet 100 mg PO DAILY Qty: 90 1RF metformin 1,000 mg tablet See Rx Instructions .ROUTE .COMPLEX Qty: 180 1RF Dose Instruction: TAKE 1 TABLET BY MOUTH TWICE DAILY Rx Instructions: TAKE 1 TABLET BY MOUTH TWICE DAILY hydrochlorothiazide 25 mg tablet See Rx Instructions .ROUTE .COMPLEX Qty: 90 0RF Dose Instruction: TAKE 1 TABLET BY MOUTH DAILY Rx Instructions: TAKE 1 TABLET BY MOUTH DAILY <Rashida Krishnamurthy PA-C - Last Filed: 07/25/24 12:14> Follow-up/Referrals: Ron Snow MD [Physician] - 3 Days Zac Lockhart DO [Primary Care Provider] - <Rashida Krishnamurthy PA-C - Last Filed: 07/25/24 12:14> Stand Alone Forms: Work/School Release IP <Rashida Krishnamurthy PA-C - Last Filed: 07/25/24 12:14>
--- NOTE | 2024-07-24 14:29 | ECG_ITS ---
Test Date: 2024-07-24 14:34:51 Measurements Intervals [place] Rate: 84 P: 35 [place]: 166 QRS: 27 QRSD: 95 T: 39 QT: 348 QTc: 413 Interpretive Statements SINUS RHYTHM No previous ECG available for comparison Electronically Signed On 07-25-2024 11:47:04 COUNTER POCKET SEWER by Eladio Herrera
[2024-07-24 14:51] LABS: Basophils Percent Auto 0.4 % (0.2-1.2); Eosinophils Absolute Auto 0.1 K/mm3 (0-0.3); Eosinophils Percent Auto 0.5 % (0-4.4); Hematocrit 45.5 % (42.0-52.0); Hemoglobin 15.8 g/dL (14.0-18.0); Immature Granulocyte Absolute 0.04 K/mm3 (0.00-0.031); Immature Granulocyte Percent A 0.4 % (0-0.5); Lymphocytes Absolute Auto 0.95 K/mm3 (0.9-3.2); Lymphocytes Percent Auto 10.4 % (18.3-44.2); Mean Corpuscular HGB Conc 34.7 g/dl (32-36); Mean Corpuscular Hemoglobin 31.6 pg (26-34); Mean Platelet Volume 10.4 fl (7.4-10.4); Monocytes Absolute Auto 0.8 K/mm3 (0.1-0.6); Monocytes Percent Auto 8.6 % (2.6-8.5); Neutrophils Absolute Auto 7.3 K/mm3 (1.3-6.7); Neutrophils Percent Auto 79.7 % (45.5-73.1); Platelet Count Result 251 k/mm3 (150-375); Red Cell Distribution Width 11.7 % (11.5-14.5); White Blood Count 9.1 K/mm3 (4.5-10.0)
[2024-07-24 15:03] LABS: Alanine Aminotransferase 25 U/L (6-50); Albumin Level 4.7 g/dL (3.5-5.1); Alkaline Phosphatase 77 U/L (38-126); Anion Gap 7 mmol/L (4-12); Aspartate Amino Transferase 20 U/L (17-59); Bilirubin,Total 0.6 mg/dL (0.2-1.3); Blood Urea Nitrogen 13 mg/dL (9-20); Calcium 9.7 mg/dL (8.4-10.2); Carbon Dioxide 28 mmol/L (22-30); Chloride 102 mmol/L (98-107); Estimated CRCL calculation 96 ml/min; Estimated Glomerular Filt Rate > 60; Glucose 180 mg/dL (65-110); Potassium 4.6 mmol/L (3.4-5.0); Sodium 137 mmol/L (137-145)
== END 2024-07-24 16:21 | disposition home or self-care (01) ==
PROVIDERS: Physician Assistant; Emergency Provider Emergency Medicine; PCP Internal Medicine
DX: R42 Dizziness and giddiness (principal); I10 Essential (primary) hypertension; H83.8X1 Other specified diseases of right inner ear; F10.21 Alcohol dependence, in remission; E78.5 Hyperlipidemia, unspecified; E11.9 Type 2 diabetes mellitus without complications
CPT/HCPCS: 36415; 70450; 80053; 85025; 93005; 99284

== ENCOUNTER 2024-08-10 10:39 | Outpatient (CLI) | payer BC, SELFPAY ==
[2024-08-10 12:32] LABS: Creatinine Urine 92.4 mg/dL
[2024-08-10 12:35] LABS: MALB Creatinine Ratio 146.1 mg/g (0-30)
[2024-08-10 13:58] LABS: Hemoglobin A1C 7.8 % (<5.7)
== END 2024-08-10 10:40 | disposition home or self-care (01) ==
LOC: ANHGOSHLAB 10:40
PROVIDERS: PCP Nurse Practitioner; Visit Provider Nurse Practitioner
DX: E11.9 Type 2 diabetes mellitus without complications (principal)
CPT/HCPCS: 36415; 82043; 82607; 83036

== ENCOUNTER 2024-08-10 14:35 | Outpatient (CLI) | payer BC, SELFPAY ==
--- NOTE | 2024-08-10 14:48 | ECHO_ITS ---
Patient Info Name: Nahun Reynoso Age: 58 years : 1965 Gender: Male Ht: 70 in Wt: 228 lbs BSA: 2.29 m2 HR: 65 bpm BP: 155 / 99 mmHg Technical Quality: Fair Exam Date: 08/10/2024 2:54 PM Exam Location: Echo Lab Patient Status: Outpatient Admit Date: 08/10/2024 Staff Ordering Physician: Rashida Gray NP Tourist Information Assistant: Tammy Arrieta RDCS Attending Provider: Rashida Gray NP Referring Physician: Isaac PRINCE; Exam Type: CA echo doppler color flow Study Info Indications - ESST HTN Complete two-dimensional, color flow and Doppler transthoracic echocardiogram is performed. Summary 1. Complete two-dimensional, color flow and Doppler transthoracic echocardiogram is performed. 2. normal LFEF 56%, mild LVH and ,ild diastolic dyfunction,. mild AZ, trace MR. Left Ventricular Outflow Tract Name Value Normal LVOT 2D LVOT Diameter 2.2 cm LVOT Doppler LVOT Peak Velocity 104 cm/s LVOT Peak Gradient 4 mmHg LVOT Mean Gradient 2 mmHg LVOT VTI 21 cm LVOT VTI/AV VTI Ratio 0.8 LVOT Stroke Volume 82 ml LVOT CO 5.1 l/min LVOT CI 2.2 l/min/m2 Pulmonic Valve Name Value Normal RVOT Doppler RVOT Peak Gradient 2 mmHg PV Doppler PV Peak Velocity 95 cm/s PV Peak Gradient 4 mmHg PV Regurgitation Doppler AZ Peak End Diastolic Velocity 78 cm/s Mitral Valve Name Value Normal MV Doppler MV Decel [place] 393 cm/s2 MV PHT 48 ms MV Area (PHT) 4.6 cm2 4.0-5.0 MV Diastolic Function MV E Peak Velocity 64 cm/s MV A Peak Velocity 95 cm/s MV E/A 0.7 MV Decel Time 164 ms MV Annular TDI MV Septal e' Velocity 8.2 cm/s >=8.0 MV E/e' (Septal) 7.8 <=8.0 MV Lateral e' Velocity 9.4 cm/s >=10.0 MV E/e' (Lateral) 6.8 <=8.0 MV e' Average 8.84 MV E/e' (Average) 7.3 Tricuspid Valve Name Value Normal TV Regurgitation Doppler TR Peak Velocity 229 cm/s TR Peak Gradient 21 mmHg Estimated PAP/RSVP RA Pressure 10 mmHg <=5 PA Systolic Pressure 31 mmHg <36 RV Systolic Pressure 31 mmHg <36 TV Annular TDI TV Lateral Farideh s' Velocity 15.0 cm/s 9.5-18.7 Aorta Name Value Normal Ascending Aorta Ao Root Diameter (MM) 3.1 cm Ao Root Diam Index (MM) 1.4 cm/m2 Ao [place] Diameter 3.4 cm 2.6-3.2 Aortic Valve Name Value Normal AV Doppler AV Peak Velocity 134 cm/s AV Peak Gradient 7 mmHg AV Mean Gradient 4 mmHg AV VTI 27 cm AV Area (Cont Eq VTI) 3.1 cm2 >=3.0 AV Area (Cont Eq Marcus) 3.0 cm2 AV V1/V2 Ratio 0.78 AV Regurgitation 2D LVOT Area 3.8 cm2 Ventricles Name Value Normal LV Dimensions 2D/MM IVS Diastolic Thickness (2D) 1.5 cm 0.6-1.0 LVID Diastole (2D) 4.1 cm 4.2-5.8 LVIW Diastolic Thickness (2D) 1.5 cm 0.6-1.0 LVID Systole (2D) 2.8 cm 2.5-4.0 LVOT Diameter 2.2 cm LV Mass (2D Cubed) 253.83 g 88.00-224.00 LV Mass Index (2D Cubed) 111 g/m2 49-115 Relative Wall Thickness (2D) 0.75 LV Fractional Shortening/Ejection Fraction 2D/MM LV Fractional Shortening (2D) 31 % 25-43 LV EF (2D Teicholz) 59 % 52-72 LV Diastolic Volume (4C MOD) 136 ml LV EF (4C MOD) 60 % LV Diastolic Volume (2C MOD) 88 ml LV EF (2C MOD) 53 % LV Diastolic Volume (BP MOD) 110 ml 62-150 LV Diastolic Volume Index (BP MOD) 48 ml/m2 34-74 LV Systolic Volume (BP MOD) 48 ml 21-61 LV Systolic Volume Index (BP MOD) 21 ml/m2 11-31 LV EF (BP MOD) 56 % 52-72 LV Diastolic Length (4C) 8.4 cm LV Systolic Length (4C) 7.3 cm LV Stroke Volume (4C MOD) 81 ml Atria Name Value Normal LA Dimensions LA Dimension (MM) 4.0 cm 3.0-4.1 LA Volume (4C A-L) 47 ml LA Volume (BP A-L) 48 ml RA Dimensions RA Area (4C) 18.1 cm2 <=18.0 Report Signatures
== END 2024-08-10 14:36 | disposition home or self-care (01) ==
PROVIDERS: PCP Internal Medicine; Visit Provider Nurse Practitioner
DX: I11.9 Hypertensive heart disease without heart failure (principal); I37.1 Nonrheumatic pulmonary valve insufficiency
CPT/HCPCS: 93306

== ENCOUNTER 2024-08-21 10:35 | Outpatient (CLI) | payer BC, SELFPAY ==
--- NOTE | ~2024-08-21 | MR_ITS ---
MR brain/brain stem wo/w con Ordering provider: Rashida Gray NP History: 58 years Male with . R51.9 - Headache, unspecified . Comparison: CT head performed yesterday. Technique: MRI brain was performed with and without contrast. 20 mL of MultiHance was given IV. FINDINGS: BONES: Normal. CRANIOCERVICAL JUNCTION: normal. PITUITARY: Normal. MAJOR INTRACRANIAL VESSELS: Normal flow void. OPTIC NERVES AND CRANIAL NERVES VII AND VIII COMPLEXES: Grossly normal. BRAIN PARENCHYMA AND CSF SPACES: T2 and FLAIR hyperintense signal area seen in the left frontal lobe white matter most likely ischemic.. The brainstem and cerebellum are normal. No acute or chronic int racranial hemorrhage. No extra axial fluid collections. 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 Diffusion weighted and ADC mapping images reveal focal area of diffusion restriction in the left upper posterior frontal lobe which may be an acute infarct. Follow-up advised. No midline shift or mass effect. No abnormal contrast enhancement. PARANASAL SINUSES: Right maxillary sinus disease. MASTOIDS: Normal Right mastoid air cells effusion. SUPERFICIAL/SURROUNDING SOFT TISSUES: Normal. IMPRESSION: 1. Focal area of diffusion restriction in the left upper frontal lobe posteriorly which may be a acu te lacunar infarct. Follow-up advised. 2. No abnormal enhancement. Reviewed, dictated and finalized at location A. ULTURIST IMPRESSION: 1. Focal area of diffusion restriction in the left upper frontal lobe posterio rly which may be a acute lacunar infarct. Follow-up advised. 2. No abnormal enhancement.
== END 2024-08-21 10:36 | disposition home or self-care (01) ==
LOC: MICIMG 10:36
PROVIDERS: PCP Internal Medicine; Visit Provider Nurse Practitioner
DX: R51.9 Headache, unspecified (principal); I10 Essential (primary) hypertension; Z86.73 Personal history of transient ischemic attack (TIA), and cerebral infarction without residual deficits
CPT/HCPCS: 70553; A9577

== ENCOUNTER 2024-10-25 15:46 | Outpatient (CLI) | payer BC, SELFPAY ==
--- OUTSIDE RECORDS SUMMARY | 2024-10-25 17:24 | XMS_ITS | Clinical Summary ---
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 Gender Identity Not on file Sexual Orientation Not on file Plan of Treatment Health Maintenance Due Date Last Done Comments Hepatitis C Virus (HCV) Screening 1965 Hepatitis B Immunization (1 of 3 - 19+ 3-dose series) 12/10/1983 Colonoscopy 2009 Colorectal Cancer Screening 2009 Cologuard 2014 Immunochemical Fecal Occult Blood 2014 Pneumococcal Immunization (5 0+ years) (1 of 1 - PCV) 2014 Zoster Immunization (1 of 2) 2014 PSA Discussion 12/10/2019 Influenza Immunization (#1) 2024 SARS-COV-2 Immunization ( season) 2024 06/19/2021, 10/14/2020, 09/11/2020 Respiratory Syncytial Virus (RSV) Immunization (Adult) (1 - 1-dose 75+ series) 12/10/2039 DTaP/Tdap/Td Immunization Discontinued 04/08/2019 TdaP Immunization Completed 04/08/2019 Meningococcal Immunization (ACWY) Aged Out No longer eligible based on patient's age to complete this topic Pneumococcal Immunization Combined Aged Out No longer eligible based on patient's age to complete this topic Rotavirus Immunization Aged Out No lo nger eligible based on patient's age to complete this topic
--- OUTSIDE RECORDS SUMMARY | 2024-10-25 17:24 | XMS_ITS | Referral Summary ---
Author Organization [facility] Address [address] [place] [address] Care Team Providers Care Splicing Machine Operator Name Role Phone Zac Lockhart DO Primary Care Provider [phone] Source Comments [facility],non-owned Affiliates and Associated Physician Practices is amultiple site organization consisting of ambulatory clinics and hospital sitesin [place], [place], [place] and [place]. This disclosure is being madepursuant to the Care Everywhere program and may not contain all information available regarding this patient. Last updated 18.[facility] Allergies No known active allergies Medications * Be aware that medications may not be up to date on this document. Alwaysverify current medications with the patient. Medication Sig Dispensed Refills Start Date End Date Status LOSARTAN POTASSIUM PO Active METFORMIN HCL PO Active Other Cholesterol medication Active Social History Tobacco Use Types Packs/Day Years Used Date Smoking Tobacco: Never Smokeless Tobacco: Current Chew Sex and Gender Information Value Date Recorded Sex Assigned at Not on file Gender Identity Not on file Sexual Orientation Not on file Last Filed Vital Signs Vital Sign Reading Time Taken Comments Blood Pressure 132/88 05/20/2017 2:53 PM CDT Pulse 74 05/20/2017 2:53 PM CDT Temperature 37.1 C (98.7 F) 05/20/2017 2:53 PM CDT Respiratory Rate 16 05/20/2017 2:53 PM CDT Oxygen Saturation 97% 05/20/2017 2:53 PM CDT Inhaled Oxygen Concentration - - Weight 97.5 kg (215 lb) 05/20/2017 2:53 PM CDT Height 180.3 cm (5' 11 ) 05/20/2017 2:53 PM CDT Body Mass Index 29.99 05/20/2017 2:53 PM CDT Plan of Treatment Not on file Care Teams Splicing Machine Operator Relationship Specialty Start Date End Date Zac Lockhart DO PCP - General Internal Medicine 05/20/17
--- OUTSIDE RECORDS SUMMARY | 2024-10-25 17:24 | XMS_ITS | CONTINUITY OF CARE DOCUMENT ---
Author Name romana avendano Address Unknown Organization [facility] Address [id number] [place] [address] [address] [place] [address] Phone [phone] Care Team Providers Care Vehicle Painter Name Role Phone Mikhail Harris MD Unavailable [phone] Mikhail Harris MD Unavailable [phone] INSURANCE PROVIDERS Payer name Policy type / Coverage type [place] red constitution party ID BLUE SHIELD [facility] ADVANTAGE Blue Shield [id number]
--- OUTSIDE RECORDS SUMMARY | 2024-10-25 17:24 | XMS_ITS | Clinical Summary ---
Author Organization [facility] Address [address] [place] [address] Care Team Providers Care Feeder Associate Name Role Phone Zac Lockhart DO Primary Care Provider [phone] [facility],non-owned Affiliates and Associated Physician Practices is amultiple site organization consisting of ambulatory clinics and hospital sitesin [place], [place], [place] and [place]. This disclosure is being madepursuant to the Care Everywhere program and may not contain all information available regarding this patient. Last updated 18.[facility] Allergies No known active allergies Medications * Be aware that medications may not be up to date on this document. Alwaysverify current medications with the patient. Medication Sig Dispensed Refills Start Date End Date Status LOSARTAN POTASSIUM PO Active METFORMIN HCL PO Active Other Cholesterol medication Active Family History Medical History Relation Name Comments Cancer - Colon Mother Relation Name Status Comments Mother Social History Tobacco Use Types Packs/Day Years [...] 05/20/2017 2:53 PM CDT Plan of Treatment Health Maintenance Due Date Last Done Comments COLOGUARD (AGES 45-75) - COL ON CA SCREENING 1965 COLON MONITORING 1965 COLONOSCOPY - COLON CA SCREENING 1964 CT COLONOGRAPHY - COLON CA SCREENING 1965 Colorectal Cancer Screening 1965 FIT - COLON CA SCREENING 1965 FLEX SIG - COLON CA SCREENING 1965 LIPID TESTING 1965 HIV SCREENING 12/10/1979 HEPATITIS C SCREENING 12/05/1982 DTAP/TDAP/TD VACCINES (1 - Tdap) 12/10/1983 HEPATITIS B VACCINE (1 of 3 - 19+ 3-dose series) 12/10/1983 PNEUMOCOCCAL VACCINE 50+ (1 of 1 - PCV) 2014 ZOSTER VACCINE (1 of 2) 2014 SCREENING FOR DIABETES 05/20/2017 COVID-19 VACCINE (1 - 2023-2 5 season) 2024 INFLUENZA VACCINE (#1) 2024 DEPRESSION SCREENING 08/15/2024 HIB VACCINE Aged Out No longer eligi ble based on patient's age to complete this topic HPV VACCINE Aged Out No longer eligi ble based on patient's age to complete this topic MENINGOCOCCAL (Group B) VACC INE SHARED DECISION-MAKING Aged Out No longer eligibl e based on patient's age to complete this topic MENINGOCOCCAL GROUPS A/C/Y/W VACCINE Aged Out No longer eligible b ased on patient's age to complete this topic PNEUMOCOCCAL VACCINE Aged Out No long er eligible based on patient's age to complete this topic Care Teams Feeder Associate Relationship Specialty Start Date End Date Zac Lockhart DO PCP - General Internal Medicine 05/20/17
--- OUTSIDE RECORDS SUMMARY | 2024-10-25 17:24 | XMS_ITS | Patient Health Summary ---
Author Organization [facility] Address [address] [place] [address] Care Team Providers Care Steam Plant Operator Name Role Phone Zac Lockhart DO Primary Care Provider [phone] Note from [facility],non-owned Affiliates and Associated Physician Practices is amultiple site organization consisting of ambulatory clinics and hospital sitesin [place], [place], [place] and [place]. This disclosure is being madepursuant to the Care Everywhere program and may not contain all information available regarding this patient. Last updated 18.[facility] Allergies No known active allergies Medications * Be aware that medications may not be up to date on this document. Alwaysverify current medications with the patient. * LOSARTAN POTASSIUM PO * METFORMIN HCL PO * Other Cholesterol medication Social History Tobacco Use Types Packs/Day Years [...] Mass Index 29.99 05/20/2017 2:53 PM CDT Procedures * STREP A SCREEN - POINT OF CARE (AMB) STL(Performed 05/20/2017) Performed for Acute pharyngitis, unspecified etiology Results * STREP A SCREEN (05/20/2017 3:13 PM CDT) Strep A Rapid POCT Negative Negative Strep A Internal Control Present Lot # [id number] Expiration Date 08/26/2018 Throat ENTIRE THROAT (SURFACE REGION OF NECK) / Unknown 05/20/2017 3:13 PM CDT Desiree Kahn INTERNAL AFFAIRS INVESTIGATOR-APPRENTICE [facility] - POINT OF CARE ORDERABLES Care Teams Steam Plant Operator Relationship Specialty Start Date End Date Zac Lockhart DO PCP - General Internal Medicine 05/20/17
[2024-10-25 19:11] LABS: Anion Gap 14 mmol/L (4-12); Blood Urea Nitrogen 25 mg/dL (9-20); Calcium 10.1 mg/dL (8.4-10.2); Carbon Dioxide 26 mmol/L (22-30); Chloride 98 mmol/L (98-107); Estimated Glomerular Filt Rate > 60; Glucose 143 mg/dL (65-110); Potassium 4.5 mmol/L (3.4-5.0); Sodium 138 mmol/L (137-145)
[2024-10-25 20:44] LABS: Hemoglobin A1C 6.7 % (<5.7)
== END 2024-10-25 15:47 | disposition home or self-care (01) ==
LOC: ANHGOSHLAB 15:48
PROVIDERS: PCP Internal Medicine; Visit Provider Nurse Practitioner
DX: E11.9 Type 2 diabetes mellitus without complications (principal)
CPT/HCPCS: 36415; 80048; 83036

== ENCOUNTER 2025-06-24 15:54 | Outpatient (CLI) | payer BC, SELFPAY ==
--- OUTSIDE RECORDS SUMMARY | 2025-06-24 15:58 | XMS_ITS | Clinical Summary ---
Author Organization [facility] Address [address] [place] [address] Phone Care Team Providers Care Adon Name Role Phone Unavailable Primary Care Provider Unavailabl e Immunizations Immunization Administration Dates Next Due Covid-19, Mrna, Lnp-s, PF, 1 00 mcg/0.5 mL Dose (Moderna) 06/19/2021 Social History Tobacco Use Types Packs/Day Years Used Date Smoking Tobacco: Never Assessed Sex and Gender Information Value Date Recorded Sex Assigned at Not on file Legal Sex Male 12:32 AM EMERGENCY ROOM ORDERLY Gender Identity Not on file Sexual Orientation Not on file Plan of Treatment Health Maintenance Due Date Last Done Comments Hepatitis C Virus (HCV) Screening 1965 Cologuard 2009 Colonoscopy 2009 Colorectal Cancer Screening 2009 Immunochemical Fecal Occult Blood 2009 Pneumococcal Immunization (5 0+ years) (1 of 1 - PCV) 2014 Zoster Immunization (1 of 2) 2014 Influenza Immunization (#1) 2025 SARS-COV-2 Immunization ( season) 2025 06/19/2021, 10/14/2020, 09/11/2020 Respiratory Syncytial Virus (RSV) Immunization (Adult) (1 - 1-dose 75+ series) 12/10/2039 DTaP/Tdap/Td Immunization Discontinued 04/08/2019 TdaP Immunization Completed 04/08/2019 Hepatitis B Immunization Aged Out No longer eligible based on patient's age to complete this topic Human Papillomavirus (HPV) Immunization Aged Out No longer eligible based on patient's age to complete this topic Meningococcal Immunization (ACWY) Aged Out No longer eligible based on patient's age to complete this topic Rotavirus Immunization Aged Out No lo nger eligible based on patient's age to complete this topic
--- OUTSIDE RECORDS SUMMARY | 2025-06-24 15:58 | XMS_ITS | Clinical Summary ---
Author Organization [facility] Address [address] [place] [address] Care Team Providers Care Label Stamper Name Role Phone Zac Lockhart DO Primary Care Provider [phone] Source Comments [facility],non-owned Affiliates and Associated Physician Practices is amultiple site organization consisting of ambulatory clinics and hospital sitesin [place], [place], [place] and [place]. This disclosure is being madepursuant to the Care Everywhere program and may not contain all information available regarding this patient. Last updated 18.[facility] Allergies No known active allergies Medications * Be aware that medications may not be up to date on this document. Alwaysverify current medications with the patient. LOSARTAN POTASSIUM PO Active METFORMIN HCL PO Act mu empagliflozin (Jardiance) 10 MG tablet Take 1 (one) tablet by mouth once daily Active hydroCHLOROthiaz mehul (Hydrodiuril) 25 MG tablet Take 1 (one) tablet by mouth once daily 10/29/2024 Active atorvastatin (Lipitor) 40 MG tablet Take 1 (one) tablet by mouth 08/22/2024 Active amLODIPine (Norvasc) 10 MG tablet Take 1 (one) tablet by mouth once daily 11/15/2024 Active sertraline (Zoloft) 100 MG tablet Take 1 (one) tablet by mouth once daily 03/16/2024 Active aspirin EC (Ecotrin) 81 MG tablet Take 1 (one) tablet by mouth once daily Active Encounters Date Type Department Care Team Description 05/30/2025 Telephone [facility] - Cardiology [address], [address] [place] [address] Edgar Butterfield MD Monitor Placment 05/14/2025 Telephone [facility] - Cardiology [address], [address] [address] Edgar Butterfield MD Event Monitor 05/08/2025 Telephone [facility] - Cardiology [address], [address] [phone] Greer, Edgar Allen MD Event Monitor 05/01/2025 Telephone [facility] - Cardiology [address] [place] [address], [address] [phone] Edgar Butterfield MD Monitor Placment 04/30/2025 [facility] - Cardiology [address] [place] [address], [address] [phone] Edgar Butterfield MD Monitor Check 04/22/2025 3:00 PM CDT Office Visit [facility] - Neurology [address] [place] [address], [place] [address] Rand Chaney PA-C Cerebrovascular accident (CVA), unspecified mechanism (HCC) (Primary Dx); Benign essential HTN; Type 2 diabetes mellitus without complication, without long-term current use of insulin (HCC); Alcohol abuse; Anxiety 04/22/2025 Travel from Last 3 Months Family History Medical History Relation Name Comments Cancer - Colon Mother Relation Name Status Comments Mother Social History Tobacco Use Types Packs/Day Years Used Date Smoking Tobacco: Never Smokeless Tobacco: Current Chew Tobacco Cessation:Ready to Q uit: Not Asked; Counseling Given: Not Answered Sex and Gender Information Value Date Recorded Sex Assigned at Not on file Legal Sex Male 10:30 AM CDT Gender Identity Not on file Sexual Orientation Not on file Last Filed Vital Signs Vital Sign Reading Time Taken Comments Blood Pressure 162/95 04/22/2025 3:03 PM CDT Pulse 74 04/22/2025 3:03 PM CDT Temperature 37.1 C (98.7 F) 05/20/2017 2:53 PM CDT Respiratory Rate 16 04/22/2025 3:03 PM CDT Oxygen Saturation 99% 12/14/2024 8:44 AM CDT Inhaled Oxygen Concentration - - Weight 101.6 kg (224 lb) 04/22/2025 3:03 PM CDT Height 180.3 cm (5' 11) 04/22/2025 3:03 PM CDT Body Mass Index 31.24 04/22/2025 3:03 PM CDT Plan of Treatment Upcoming Encounters Date Type Department Care Team (Late st Contact Info) Description 06/26/2025 11:30 AM HARVEST WORKER FIELD CROP Video Visit [facility] - Neurology [address] [place] [address] Rand Chaney PA-C [address] [place] [address] Health Maintenance Due Date Last Done Comments COLOGUARD (AGES 45-75) - COL ON CA SCREENING 1965 COLON MONITORING 1965 COLONOSCOPY - COLON CA SCREENING 1964 CT COLONOGRAPHY - COLON CA SCREENING 1965 Colorectal Cancer Screening 1964 FIT - COLON CA SCREENING 1964 FLEX SIG - COLON CA SCREENING 1964 HIV SCREENING 12/10/1979 HEPATITIS C SCREENING 12/05/1982 DTAP/TDAP/TD VACCINES (1 - Tdap) 12/10/1983 PNEUMOCOCCAL VACCINE 50+ (1 of 2 - PCV) 12/10/1983 ZOSTER VACCINE (1 of 2) 2014 DEPRESSION SCREENING 08/15/2024 Respiratory Syncytial Virus (RSV) Vaccine Pt: or over 60 yrs (1 - Risk 60-74 years 1-dose series) 2024 SCREENING FOR DIABETES 12/14/2024 COVID-19 VACCINE ( - 2024-2 6 season) 2025 06/19/2021, 10/14/2020, 09/11/2020 INFLUENZA VACCINE (#1) 2025 HEPATITIS B VACCINE Aged Out No longe r eligible based on patient's age to complete this topic HIB VACCINE Aged Out No longer eligi ble based on patient's age to complete this topic HPV VACCINE Aged Out No longer eligi ble based on patient's age to complete this topic MENINGOCOCCAL (Group B) VACCINE SHARED DECISION-MAKING Aged Out No longer eligible based on patient's age to complete this topic MENINGOCOCCAL GROUPS A/C/Y/W VACCINE Aged Out No longer eligible b ased on patient's age to complete this topic Procedures Procedure Name Priority Date/Time Associated Diagnosis Comments CARDIAC PROCEDURE ORDER 04/25/2025 CARDIAC PROCEDURE ORDER 04/25/2025 from Last 3 Months Results * CARDIAC PROCEDURE ORDER (04/25/2025) Only the most recent of2 resultswithin the time period is included. 04/25/2025 Narrative 04/25/2025 Ordered by an unspecified provider. us Scanned Document CARDIAC SERVICES ORDERABLES Fin al Result from Last 3 [place] [address] ANTHEM Care Teams Label Stamper Relationship Specialty Start Date End Date Zac Lockhart DO PCP - General Internal Medicine 05/20/17
[2025-06-24 19:03] LABS: Anion Gap 10 mmol/L (4-12); Blood Urea Nitrogen 16 mg/dL (9-20); Calcium 8.8 mg/dL (8.4-10.2); Carbon Dioxide 30 mmol/L (22-30); Chloride 94 mmol/L (98-107); Estimated Glomerular Filt Rate > 60; Glucose 124 mg/dL (65-110); Potassium 3.8 mmol/L (3.4-5.0); Sodium 134 mmol/L (137-145)
[2025-06-24 19:53] LABS: MALB Creatinine Ratio 178.7 mg/g (0-30)
[2025-06-24 20:37] LABS: Hemoglobin A1C 7.1 % (<5.7)
== END 2025-06-24 15:55 | disposition home or self-care (01) ==
LOC: ANHGOSHLAB 15:55
PROVIDERS: PCP Internal Medicine; Visit Provider Nurse Practitioner
DX: E11.9 Type 2 diabetes mellitus without complications (principal)
CPT/HCPCS: 36415; 80048; 82043; 83036